=== PATIENT | female | born 1950 | race Caucasian/White ===

== ENCOUNTER 2018-07-12 11:02 | Inpatient (IN) | payer BC, MEDICARE ==
[2018-07-12 11:10] VITALS: BMI 24.6
--- NOTE | 2018-07-12 11:57 | C.PDOC ---
History Of Present Illness 67 year old female with a history of breast cancer (2014) presents to the emergency department with complaints of midsternal chest pain on and off for the last week. Patient states that the pain is radiating to her left chest. She de scribes the pain as intermediate and dull quality. Patient also reports shortness of breath. Time Seen by Provider: 07/12/18 11:36 Chief Complaint (Nursing): Chest Pain History Per: Patient History/Exam Limitations: no limitations Onset/Duration Of Symptoms: Intermittent Episodes, Other (one week) Current Symptoms Are (Timing): Still Present Quality: Dull Past Medical History Reviewed: Historical Data, Nursing Documentation, Vital Signs Vital Signs: Last Vital Signs Temp 99.7 F H 07/12/18 11:10 Pulse 58 L 07/12/18 11:44 Resp 20 07/12/18 11:10 BP 135/75 07/12/18 11:10 Pulse Ox 99 07/12/18 11:10 - Medical History PMH: Hypercholesterolemia (Not on any meds), Kidney Stones (ASYMPTOMATIC), Chronic Kidney Disease Surgical History: No Surg Hx - [facility] Procedures 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 Cardiovascular: Positive for: Chest Pain Respiratory: Positive for: Shortness of Breath Physical Exam - Physical Exam Appears: Non-toxic, No Acute Distress Skin: Normal Color, Warm, Dry Head: Atraumatic, Normacephalic Eye(s): bilateral: Normal Inspection Oral Mucosa: Moist Neck: Normal, Supple Chest: Symmetrical, No Tenderness Cardiovascular: Rhythm Regular, No Murmur Respiratory: Normal Breath Sounds, No Rales, No Rhonchi, No Wheezing Gastrointestinal/Abdominal: Soft, No Tenderness Extremity: Normal ROM Neurological/Psych: Oriented x3, Normal Speech, Normal Cognition ED Course And Treatment - Laboratory Results Result Diagrams: 07/12/18 12:17 07/12/18 12:17 Interpretation Of ECG: Sinus bradycardia at 51bpm. ST inversion AVL in V2. No ST elevation. O2 Sat by Pulse Oximetry: 99 (RA) Pulse Ox Interpretation: Normal - Radiology CXR: Interpreted by Me, Viewed By Me CXR Interpretation: Yes: No Acute Disease Medical Decision Making Medical Decision Making: Plan: EKG Chemistry Bloodwork Ecotrin 162mg PO O2 via Nasal Cannula CXR Spoke to Dr. Kwaku Brown at 13:43, agreed upon admission to telemetry. Disposition Discussed With : Pee Brown Doctor Will See Patient In The: Hospital Counseled Patient/Family Regarding: Studies Performed, Diagnosis - Disposition Disposition: HOSPITALIZED Disposition Time: 13:45 Condition: STABLE Forms: [facility] ([employer]) - POA Present On Arrival: None - Clinical Impression Clinical Impression: Chest pain, Congestive heart failure - Scribe Statement The provider has reviewed the documentation as recorded by the Scribe (Harvinder Carpenter) Provider Attestation: All medical record entries made by the Scribe were at my direction and personally dictated by me. I have reviewed the chart and agree that the record accurately reflects my personal performance of the history, physical exam, m edical decision making, and the department course for this patient. I have also personally directed, reviewed, and agree with the discharge instructions and disposition.
[2018-07-12 12:22] LABS: BASO % 0.4 % (0.0-2.0); EOS % 0.1 % (0.0-4.0); HEMOGLOBIN 13.9 g/dL (11.0-16.0); LYMPH # 1.1 K/uL (1.0-4.3); MEAN CELL VOLUME 95.8 fL (81.0-99.0); MEAN CORPUSCULAR HEMOGLOBIN 32.8 pg (27.0-31.0); MEAN CORPUSCULAR HGB CONC 34.3 g/dL (33.0-37.0); MEAN PLATELET VOLUME 9.6 fL (7.2-11.7); MONO # 0.4 K/uL (0.0-0.8); MONO % 2.9 % (0.0-10.0); NEUT # 11.8 K/uL (1.8-7.0); NEUT % 88.6 % (50.0-75.0); PLATELET COUNT 238 K/uL (130-400); RBC 4.22 Mil/uL (3.80-5.20); RED CELL DISTRIBUTION WIDTH 12.2 % (11.5-14.5)
[2018-07-12 12:25] LABS: WHITE BLOOD COUNT 13.3 K/uL (4.8-10.8)
[2018-07-12 12:30] LABS: PARTIAL THROMBOPLASTIN TIME 29 SECONDS (21-34); PROTHROMBIN TIME 11.3 SECONDS (9.7-12.2)
[2018-07-12 12:41] LABS: BANDS 1 % (0-2); LYMPHOCYTE 10 % (20-40); MONOCYTE 5 % (0-10); NEUTROPHIL 84 % (50-75); TOTAL CELLS COUNTED 100
[2018-07-12 12:42] LABS: ANISOCYTOSIS SLIGHT; PLATELET ESTIMATE NORMAL (NORMAL)
[2018-07-12 12:43] LABS: ALB/GLOB RATIO 1.6 (1.0-2.1); ALBUMIN 4.4 g/dL (3.5-5.0); ALT/SGPT 55 U/L (9-52); AST/SGOT 41 U/L (14-36); BLOOD UREA NITROGEN 16 mg/dL (7-17); CALCIUM 9.6 mg/dl (8.6-10.4); GFR NON-AFRICAN AMERICAN > 60
[2018-07-12 12:46] LABS: D DIMER < 200 ng/mlDDU (0-243)
[2018-07-12 12:54] LABS: B-TYPE NATRIURETIC PEPTIDE 1920 pg/mL (0-900)
[2018-07-12] MEDS ORDERED: Pneumococcal 23-Valent Vaccine IM ONE (16:16)
--- NOTE | 2018-07-12 17:27 | CP.PCM.HP ---
History of Present Illness - History of Present Illness History of Present Illness: 67 year old female patient with past medical history of CKD, kidney stones, breast cancer presents to the ER with intermittent midsternal chest pain since last one week, which radiates to her left chest. pain is intermediate and dull quality a/w SOB Present on Admission - Present on Admission Any Indicators Present on Admission: No Past Patient History - Past Medical History & Family History Past Medical History?: Yes - Past Social History Smoking Status: Never Smoked - CARDIAC Hx Hypercholesterolemia: Yes (Not on any meds) - PULMONARY Hx Respiratory Disorders: No - NEUROLOGICAL Hx Neurological Disorder: No - HEENT Hx HEENT Problems: No - RENAL Hx Chronic Kidney Disease: Yes Hx Kidney Stones: Yes (ASYMPTOMATIC) - ENDOCRINE/METABOLIC Hx Endocrine Disorders: No - HEMATOLOGICAL/ONCOLOGICAL Hx Blood Disorders: Yes Hx Cancer: Yes (RIGHT BREAST) Hx Chemotherapy: Yes - INTEGUMENTARY Hx Dermatological Problems: Yes (HX. FINGER NAIL FUNGUS) - GASTROINTESTINAL Hx Gastrointestinal Disorders: No - GENITOURINARY/GYNECOLOGICAL Hx Genitourinary Disorders: No - PSYCHIATRIC Hx Substance Use: No - SURGICAL HISTORY Hx Surgeries: Yes Hx Breast Biopsy: Yes (RIGHT BREAST) Hx Mastectomy: Yes (MODIFIED-(SEE TEXT)) Hx Vascular Surgery: Yes (life port left chest) Other/Comment: 11/12/14; MODIFIED MASECTOMY WITH AXILLARY NODE DISSECTION AND FROZEN SECTION RANDEE RECONSTRUCTION.(RIGHT BREAST). - ANESTHESIA Hx Anesthesia: Yes Hx Anesthesia Reactions: No Hx Malignant Hyperthermia: No Meds Allergies/Adverse Reactions: Allergies Allergy/AdvReac Type Severity Reaction Status Date / Time No Known Allergies Allergy Verified 07/12/18 11:09 Physical Exam - Constitutional Appears: Well - Head Exam Head Exam: ATRAUMATIC, NORMAL INSPECTION, NORMOCEPHALIC - Eye Exam Eye Exam: EOMI, Normal appearance, PERRL Pupil Exam: NORMAL ACCOMODATION, PERRL - ENT Exam ENT Exam: Mucous Membranes Moist, Normal Exam - Neck Exam Neck exam: Positive for: Normal Inspection - Respiratory Exam Respiratory Exam: Decreased Breath Sounds - Cardiovascular Exam Cardiovascular Exam: REGULAR RHYTHM, +S1, +S2 - GI/Abdominal Exam GI & Abdominal Exam: Diminished Bowel Sounds, Soft - Rectal Exam Rectal Exam: Deferred Results - Vital Signs Recent Vital Signs: Last Vital Signs Temp 97.6 F 07/12/18 15:15 Pulse 59 L 07/12/18 15:15 Resp 18 07/12/18 15:15 BP 115/73 07/12/18 15:15 Pulse Ox 98 07/12/18 15:15 - Labs Result Diagrams: 07/15/18 06:24 07/12/18 12:17 Labs: Laboratory Results - last 24 hr 07/12/18 07/12/18 07/12/18 12:17 12:17 12:17 WBC 13.3 H D RBC 4.22 Hgb 13.9 Hct 40.4 MCV 95.8 MCH 32.8 H MCHC 34.3 RDW 12.2 Plt Count 238 MPV 9.6 Neut % (Auto) 88.6 H Lymph % (Auto) 8.0 L [place] % (Auto) 2.9 Eos % (Auto) 0.1 Baso % (Auto) 0.4 Neut # (Auto) 11.8 H Lymph # (Auto) 1.1 [place] # (Auto) 0.4 Eos # (Auto) 0.0 Baso # (Auto) 0.0 Neutrophils % (Manual) 84 H Band Neutrophils % 1 Lymphocytes % (Manual) 10 L Monocytes % (Manual) 5 Platelet Estimate Normal Anisocytosis (manual) Slight PT 11.3 INR 1.0 APTT 29 D-Dimer, Quantitative < 200 Sodium 138 Potassium 3.9 Chloride 105 Carbon Dioxide 23 Anion Gap 13 BUN 16 Creatinine 0.5 L Est GFR ( Amer) > 60 Est GFR (Non-Af Amer) > 60 Random Glucose 126 H D Calcium 9.6 Total Bilirubin 0.6 AST 41 H ALT 55 H D Alkaline Phosphatase 95 Troponin I 0.0470 NT-Pro-B Natriuret Pep 1920 H Total Protein 7.2 Albumin 4.4 Globulin 2.7 Albumin/Globulin Ratio 1.6
[2018-07-12 17:45] LABS: CK-MB 5.31 ng/mL (0.0-3.38); TROPONIN I 0.254 ng/mL (0.00-0.120)
--- NOTE | 2018-07-12 18:14 | CP.PCM.CON ---
History of Present Illness - History of Present Illness History of Present Illness: CC: Chest pain HPI: 67 year old female with chest pain. Pain started in June was found to have an abnormal EKG with LAD territory stenosis she was refereed to cardiology this appointment is for next week. She is reporting one day onset of chest pain. Located in the retrosternum. Pain occured at rest. Pain is burning and pressure like in character. pain radiates to jaw. She is reporting it improved with aspirin in ED. Review of Systems - Review of Systems All systems: reviewed and no additional remarkable complaints except Past Patient History - Past Medical History & Family History Past Medical History?: Yes - Past Social History Smoking Status: Never Smoked - CARDIAC Hx Hypercholesterolemia: Yes (Not on any meds) - PULMONARY Hx Respiratory Disorders: No - NEUROLOGICAL Hx Neurological Disorder: No - HEENT Hx HEENT Problems: No - RENAL Hx Chronic Kidney Disease: Yes Hx Kidney Stones: Yes (ASYMPTOMATIC) - ENDOCRINE/METABOLIC Hx Endocrine Disorders: No - HEMATOLOGICAL/ONCOLOGICAL Hx Blood Disorders: Yes Hx Cancer: Yes (RIGHT BREAST) Hx Chemotherapy: Yes - INTEGUMENTARY Hx Dermatological Problems: Yes (HX. FINGER NAIL FUNGUS) - GASTROINTESTINAL Hx Gastrointestinal Disorders: No - GENITOURINARY/GYNECOLOGICAL Hx Genitourinary Disorders: No - PSYCHIATRIC Hx Substance Use: No - SURGICAL HISTORY Hx Surgeries: Yes Hx Breast Biopsy: Yes (RIGHT BREAST) Hx Mastectomy: Yes (MODIFIED-(SEE TEXT)) Hx Vascular Surgery: Yes (life port left chest) Other/Comment: 11/12/14; MODIFIED MASECTOMY WITH AXILLARY NODE DISSECTION AND FROZEN SECTION RANDEE RECONSTRUCTION.(RIGHT BREAST). - ANESTHESIA Hx Anesthesia: Yes Hx Anesthesia Reactions: No Hx Malignant Hyperthermia: No Meds Allergies/Adverse Reactions: Allergies Allergy/AdvReac Type Severity Reaction Status Date / Time No Known Allergies Allergy Verified 07/12/18 11:09 - Medications Medications: Current Medications Aspirin (Aspirin) 325 mg PO DAILY [facility] Clopidogrel Bisulfate (Plavix) 75 mg PO DAILY [facility] Ergocalciferol (Drisdol 50,000 Intl Units Cap) 1 cap PO DAILY [facility] Furosemide (Lasix) 20 mg IVP DAILY [facility] Influenza Virus Vaccine (Flucelvax Quad [id number] Syr) 60 mcg IM .ONCE ONE Stop: 07/13/18 10:01 [id number] Ethyl Esters (Lovaza) 1 gm PO DAILY [facility] Physical Exam - Constitutional Appears: Well, Non-toxic - Head Exam Head Exam: ATRAUMATIC, NORMAL INSPECTION - Eye Exam Eye Exam: PERRL. absent: Scleral icterus - ENT Exam ENT Exam: Mucous Membranes Moist, Normal External Ear Exam - Neck Exam Neck exam: Positive for: Full Rom. Negative for: Thyromegaly - Respiratory Exam Respiratory Exam: Clear to Auscultation Bilateral, NORMAL BREATHING PATTERN - Cardiovascular Exam Cardiovascular Exam: REGULAR RHYTHM, RRR, +S1, +S2. absent: JVD - GI/Abdominal Exam GI & Abdominal Exam: Normal Bowel Sounds. absent: Organomegaly - Extremities Exam Extremities exam: Positive for: normal inspection. Negative for: calf tenderness, pedal edema - Neurological Exam Neurological exam: CN II-XII Intact, Oriented x3 - Psychiatric Exam Psychiatric exam: Normal Affect, Normal Mood Results - Vital Signs Recent Vital Signs: Last Vital Signs Temp 97.6 F 07/12/18 15:15 Pulse 59 L 07/12/18 15:15 Resp 18 07/12/18 15:15 BP 115/73 07/12/18 15:15 Pulse Ox 98 07/12/18 15:15 - Labs Result Diagrams: 07/13/18 07:18 07/12/18 12:17 Labs: Laboratory Results - last 24 hr 07/12/18 07/12/18 07/12/18 12:17 12:17 12:17 WBC 13.3 H D RBC 4.22 Hgb 13.9 Hct 40.4 MCV 95.8 MCH 32.8 H MCHC 34.3 RDW 12.2 Plt Count 238 MPV 9.6 Neut % (Auto) 88.6 H Lymph % (Auto) 8.0 L [place] % (Auto) 2.9 Eos % (Auto) 0.1 Baso % (Auto) 0.4 Neut # (Auto) 11.8 H Lymph # (Auto) 1.1 [place] # (Auto) 0.4 Eos # (Auto) 0.0 Baso # (Auto) 0.0 Neutrophils % (Manual) 84 H Band Neutrophils % 1 Lymphocytes % (Manual) 10 L Monocytes % (Manual) 5 Platelet Estimate Normal Anisocytosis (manual) Slight PT 11.3 INR 1.0 APTT 29 D-Dimer, Quantitative < 200 Sodium 138 Potassium 3.9 Chloride 105 Carbon Dioxide 23 Anion Gap 13 BUN 16 Creatinine 0.5 L Est GFR ( Amer) > 60 Est GFR (Non-Af Amer) > 60 Random Glucose 126 H D Calcium 9.6 Total Bilirubin 0.6 AST 41 H ALT 55 H D Alkaline Phosphatase 95 Total Creatine Kinase CK-MB (Mass) Troponin I 0.0470 NT-Pro-B Natriuret Pep 1920 H Total Protein 7.2 Albumin 4.4 Globulin 2.7 Albumin/Globulin Ratio 1.6 07/12/18 17:11 WBC RBC Hgb Hct MCV MCH MCHC RDW Plt Count MPV Neut % (Auto) Lymph % (Auto) [place] % (Auto) Eos % (Auto) Baso % (Auto) Neut # (Auto) Lymph # (Auto) [place] # (Auto) Eos # (Auto) Baso # (Auto) Neutrophils % (Manual) Band Neutrophils % Lymphocytes % (Manual) Monocytes % (Manual) Platelet Estimate Anisocytosis (manual) PT INR APTT D-Dimer, Quantitative Sodium Potassium Chloride Carbon Dioxide Anion Gap BUN Creatinine Est GFR ( Amer) Est GFR (Non-Af Amer) Random Glucose Calcium Total Bilirubin AST ALT Alkaline Phosphatase Total Creatine Kinase 89 CK-MB (Mass) 5.31 H Troponin I 0.2540 H* NT-Pro-B Natriuret Pep Total Protein Albumin Globulin Albumin/Globulin Ratio - EKG Data EKG Interpreted by: Myself EKG shows normal: Sinus rhythm, ST-T waves (T wave symetrical diffuse inversions) Rate: Normal - Imaging and Cardiology Chest x-ray Status: Image reviewed by me Additional comment: No infiltrates or effusions Assessment & Plan - Assessment and Plan (Free Text) Assessment: 67 year old female with NSTEMI Trop > 1.0 IV heparin. Nitrates as needed for chest pain. ASA, Plavix, obtain 2D echo to rule out cardiomyopathy given her h istory of cardiotoxic chemo for breast cancer. If she has regional wall motion abnormalities then will scheduled cardiac catheterizing for coronary angiogram. Breast cancer s/p full course of chemo and 6 months post treatment of tomoxafin, obtain those records if there is low EF. - Date & Time Date: 07/13/18 Time: 14:01
--- NOTE | 2018-07-12 18:34 | RAD ---
Date of service: 07/12/2018 HISTORY: chest pain COMPARISON: Portable chest 11/12/2014. FINDINGS: LUNGS: Endotracheal tube and left MediPort have been removed. Cardiomegaly is stable. No pulmonary congestion infiltrate or pleural effusion appreciated at this time. No pneumothorax bilaterally. PLEURA: As above. CARDIOVASCULAR: No aortic atherosclerotic calcification present. Normal cardiac size. No pulmonary vascular congestion. OSSEOUS STRUCTURES: No significant abnormalities. VISUALIZED UPPER ABDOMEN: Normal. OTHER FINDINGS: None. IMPRESSION: Stable cardiomegaly. No acute cardiopulmonary disease appreciated at this time. MediPort and endotracheal tube removed.
[2018-07-12] MEDS: Heparin25000 units/250ml 1/2NS 25,000 UNITS/250 ML BAG IV PRN (19:38)
[2018-07-13 00:19] LABS: CK-MB 20.6 ng/mL (0.0-3.38); TROPONIN I 1.67 ng/mL (0.00-0.120)
[2018-07-13 00:35] VITALS: RESP 20
[2018-07-13 07:26] LABS: BASO % 0.2 % (0.0-2.0); EOS % 0.1 % (0.0-4.0); HEMOGLOBIN 14.4 g/dL (11.0-16.0); LYMPH # 1.7 K/uL (1.0-4.3); LYMPH % 16.5 % (20.0-40.0); MEAN CELL VOLUME 94.2 fL (81.0-99.0); MEAN CORPUSCULAR HEMOGLOBIN 32.6 pg (27.0-31.0); MEAN CORPUSCULAR HGB CONC 34.6 g/dL (33.0-37.0); MEAN PLATELET VOLUME 9.6 fL (7.2-11.7); MONO # 0.4 K/uL (0.0-0.8); MONO % 4.2 % (0.0-10.0); NEUT # 8.3 K/uL (1.8-7.0); RBC 4.42 Mil/uL (3.80-5.20); RED CELL DISTRIBUTION WIDTH 12.1 % (11.5-14.5); WHITE BLOOD COUNT 10.5 K/uL (4.8-10.8)
[2018-07-13] MEDS: Omega-3-Acid Ethyl Esters 1 GM Cap PO SCH (09:22)
[2018-07-13] MEDS: Ergocalciferol 50,000 Intl Units Cap PO SCH (09:22)
[2018-07-13] MEDS ORDERED: Influenza Vaccine 60 mcg/0.5 mL SYR (4YR UP) IM ONE (10:00)
--- NOTE | 2018-07-13 16:30 | CP.PCM.PN ---
Subjective - Date & Time of Evaluation Date of Evaluation: 07/13/18 Time of Evaluation: 10:30 - Subjective Subjective: clinically same Objective - Vital Signs/Intake and Output Vital Signs (last 24 hours): Temp Pulse Resp BP Pulse Ox 98.1 F 93 H 20 97/61 L 96 07/13/18 08:00 07/13/18 12:04 07/13/18 08:00 07/13/18 09:23 07/13/18 08:00 - Medications Medications: Current Medications Aspirin (Aspirin) 325 mg PO DAILY [facility] Last Admin: 07/13/18 09:22 Dose: 325 mg Clopidogrel Bisulfate (Plavix) 75 mg PO DAILY [facility] Last Admin: 07/13/18 09:22 Dose: 75 mg Ergocalciferol (Drisdol 50,000 Intl Units Cap) 1 cap PO DAILY [facility] Last Admin: 07/13/18 09:22 Dose: 1 cap Furosemide (Lasix) 20 mg IVP DAILY [facility] Last Admin: 07/13/18 09:23 Dose: Not Given Heparin Sodium/Sodium Chloride (Heparin 30887 Units/250ml 1/2 Normal Saline) 25,000 units in 250 mls @ 6.641 mls/hr IV .Q24H PRN; Protocol PRN Reason: PROTOCOL Last Admin: 07/12/18 19:38 Dose: 12 units/kg/hr, 6.641 mls/hr [id number]-8-[id number] Ethyl Esters (Lovaza) 1 gm PO DAILY [facility] Last Admin: 07/13/18 09:22 Dose: 1 gm - Labs Labs: 07/13/18 07:18 07/12/18 12:17 PT 11.3 SECONDS (9.7-12.2) 07/12/18 12:17 INR 1.0 07/12/18 12:17 APTT 50 SECONDS (21-34) H 07/13/18 07:18
[2018-07-14 07:40] LABS: BASO % 0.4 % (0.0-2.0); EOS % 0.4 % (0.0-4.0); HEMOGLOBIN 14.6 g/dL (11.0-16.0); LYMPH % 27.8 % (20.0-40.0); MEAN CELL VOLUME 94.2 fL (81.0-99.0); MEAN CORPUSCULAR HEMOGLOBIN 33.3 pg (27.0-31.0); MEAN CORPUSCULAR HGB CONC 35.4 g/dL (33.0-37.0); MONO # 0.5 K/uL (0.0-0.8); MONO % 7.1 % (0.0-10.0); NEUT # 4.7 K/uL (1.8-7.0); NEUT % 64.3 % (50.0-75.0); RBC 4.38 Mil/uL (3.80-5.20); RED CELL DISTRIBUTION WIDTH 12.2 % (11.5-14.5); WHITE BLOOD COUNT 7.4 K/uL (4.8-10.8)
[2018-07-14] MEDS: Omega-3-Acid Ethyl Esters 1 GM Cap PO SCH (09:40)
[2018-07-14] MEDS: Ergocalciferol 50,000 Intl Units Cap PO SCH (09:40)
[2018-07-14] MEDS: Heparin25000 units/250ml 1/2NS 25,000 UNITS/250 ML BAG IV PRN (12:08)
--- NOTE | 2018-07-14 12:09 | CP.PCM.PN ---
Subjective - Date & Time of Evaluation Date of Evaluation: 07/14/18 Time of Evaluation: 12:45 - Subjective Subjective: CP is minimal No acute distress No ADHF No fevers or chills Objective - Vital Signs/Intake and Output Vital Signs (last 24 hours): Temp Pulse Resp BP Pulse Ox 98.3 F 88 20 120/77 100 07/14/18 07:05 07/14/18 11:54 07/14/18 11:10 07/14/18 09:40 07/14/18 11:10 - Medications Medications: Current Medications Aspirin (Aspirin) 325 mg PO DAILY [facility] Last Admin: 07/14/18 09:40 Dose: 325 mg Clopidogrel Bisulfate (Plavix) 75 mg PO DAILY [facility] Last Admin: 07/14/18 09:40 Dose: 75 mg Ergocalciferol (Drisdol 50,000 Intl Units Cap) 1 cap PO DAILY [facility] Last Admin: 07/14/18 09:40 Dose: 1 cap Furosemide (Lasix) 20 mg IVP DAILY [facility] Last Admin: 07/14/18 09:40 Dose: 20 mg Heparin Sodium/Sodium Chloride (Heparin 44301 Units/250ml 1/2 Normal Saline) 25,000 units in 250 mls @ 6.641 mls/hr IV .Q24H PRN; Protocol PRN Reason: PROTOCOL Last Admin: 07/12/18 19:38 Dose: 12 units/kg/hr, 6.641 mls/hr [id number] Ethyl Esters (Lovaza) 1 gm PO DAILY [facility] Last Admin: 07/14/18 09:40 Dose: 1 gm - Labs Labs: 07/14/18 07:24 07/12/18 12:17 PT 11.3 SECONDS (9.7-12.2) 07/12/18 12:17 INR 1.0 07/12/18 12:17 APTT 61 SECONDS (21-34) H D 07/14/18 07:24 - Constitutional Appears: No Acute Distress - Head Exam Head Exam: ATRAUMATIC, NORMAL INSPECTION, NORMOCEPHALIC - Eye Exam Eye Exam: EOMI, Normal appearance. absent: Scleral icterus - ENT Exam ENT Exam: Mucous Membranes Moist, Normal Oropharynx - Neck Exam Neck Exam: Full ROM, Normal Inspection. absent: Tenderness - Respiratory Exam Respiratory Exam: Clear to Ausculation Bilateral, NORMAL BREATHING PATTERN. absent: Rhonchi, Wheezes - Cardiovascular Exam Cardiovascular Exam: REGULAR RHYTHM, +S1, +S2. absent: +S4, Murmur - GI/Abdominal Exam GI & Abdominal Exam: Soft, Normal Bowel Sounds. absent: Tenderness, Organomegaly - Extremities Exam Extremities Exam: Full ROM, Normal Inspection. absent: Calf Tenderness, Pedal Edema - Neurological Exam Neurological Exam: Alert, Awake, Oriented x3 - Psychiatric Exam Psychiatric exam: Normal Affect, Normal Mood - Skin Skin Exam: Normal Color, Warm Assessment and Plan - Assessment and Plan (Free Text) Assessment: Patient with NSTEMI > Serial EKG's reviewed by me suggest recent anterior infarct and now q-waves in the anteroseptal leads > ECHO done: 07/13/18: images directly viewed by me: Moderate LV function ~ 40- 45% with distal septum and diana-apical akinesia c/w ischemic cardiomyopathy. > CXR: no infiltrate or effusion, stable mild cardiomegaly Labs: Normal creat, trop .04 > 0.2 > 1.67; H/H normal, mild inc in AST/ALT DX: Ischemic cardiomyopathy, recent anterior infarct add Coreg 3.125 BID cont DAPT and Heparin Add crestor 20 cont lasix consider IMDUR or ranexa if chest pains PLAN: I discussed R&B of cardiac cath diagnostic versus transfer to [facility] for cath with PCI as high probability for intervention. I offered diagnostic cath here at [facility]: but given need for possible intervention they prefer transfer to [facility] as can be done simultaneously if needed. NPO after midnight: case scheduled for ~10:30am 07/15/18 at [facility] [employer] [phone]
--- NOTE | 2018-07-14 14:42 | CARD ---
APPROVED REPORT Date of service: 07/12/2018 EKG Measurement Heart [id number] 142P5 [id number] <Conclusion> Sinus bradycardia Minimal voltage criteria for LVH, may be normal variant Cannot rule out Anteroseptal infarct, age undetermined T wave abnormality, consider lateral ischemia Abnormal ECG
--- NOTE | 2018-07-14 14:59 | CP.PCM.PN ---
Subjective - Date & Time of Evaluation Date of Evaluation: 07/14/18 Time of Evaluation: 11:30 - Subjective Subjective: clinically same Objective - Vital Signs/Intake and Output Vital Signs (last 24 hours): Temp Pulse Resp BP Pulse Ox 98.3 F 88 20 120/77 100 07/14/18 07:05 07/14/18 11:54 07/14/18 11:10 07/14/18 09:40 07/14/18 11:10 Intake and Output: 07/14/18 07/14/18 06:59 18:59 Intake Total 240 Balance 240 - Medications Medications: Current Medications Aspirin (Aspirin) 325 mg PO DAILY [facility] Last Admin: 07/14/18 09:40 Dose: 325 mg Carvedilol (Coreg) 3.125 mg PO BID [facility] Clopidogrel Bisulfate (Plavix) 75 mg PO DAILY [facility] Last Admin: 07/14/18 09:40 Dose: 75 mg Ergocalciferol (Drisdol 50,000 Intl Units Cap) 1 cap PO DAILY [facility] Last Admin: 07/14/18 09:40 Dose: 1 cap Furosemide (Lasix) 20 mg IVP DAILY [facility] Last Admin: 07/14/18 09:40 Dose: 20 mg Heparin Sodium/Sodium Chloride (Heparin 17120 Units/250ml 1/2 Normal Saline) 25,000 units in 250 mls @ 6.641 mls/hr IV .Q24H PRN; Protocol PRN Reason: PROTOCOL Last Admin: 07/14/18 12:08 Dose: 12 units/kg/hr, 6.641 mls/hr [id number]-[id number] Ethyl Esters (Lovaza) 1 gm PO DAILY [facility] Last Admin: 07/14/18 09:40 Dose: 1 gm - Labs Labs: 07/14/18 07:24 07/12/18 12:17 PT 11.3 SECONDS (9.7-12.2) 07/12/18 12:17 INR 1.0 07/12/18 12:17 APTT 61 SECONDS (21-34) H D 07/14/18 07:24 - Constitutional Appears: Well - Head Exam Head Exam: ATRAUMATIC, NORMAL INSPECTION, NORMOCEPHALIC - Eye Exam Eye Exam: EOMI, Normal appearance, PERRL Pupil Exam: NORMAL ACCOMODATION, PERRL - ENT Exam ENT Exam: Mucous Membranes Moist, Normal Exam - Neck Exam Neck Exam: Full ROM, Normal Inspection. absent: Lymphadenopathy - Respiratory Exam Respiratory Exam: Decreased Breath Sounds - Cardiovascular Exam Cardiovascular Exam: REGULAR RHYTHM, +S1, +S2 - GI/Abdominal Exam GI & Abdominal Exam: Soft, Diminished Bowel Sounds - Rectal Exam Rectal Exam: Deferred
--- NOTE | 2018-07-14 15:05 | CARD ---
APPROVED REPORT Date of service: 07/14/2018 EXAM: Two-dimensional and M-mode echocardiogram with Doppler and color Doppler. Other Information Quality : GoodRhythm : INDICATION Chest Pain Congestive Heart Failure POSITIVE TROPONIN, CA OF BREAST RISK FACTORS Hyperlipidemia 2D DIMENSIONS IVSd0.9 (0.7-1.1cm)LVDd4.6 (3.9-5.9cm) PWd0.9 (0.7-1.1cm)LA Ujeurr57 (18-58mL) LVDs2.9 (2.5-4.0cm)FS (%) 36.7 % LVEF (%)49.0 (>50%)LVEF (Bolton's)48 % IVC0.00 cm M-Mode DIMENSIONS RVDd1.49 (2.1-3.2cm)Left Atrium (MM)3.28 (2.5-4.0cm) IVSd1.28 (0.7-1.1cm)Aortic Root2.51 (2.2-3.7cm) LVDd4.89 (4.0-5.6cm)Aortic Cusp Exc.1.72 (1.5-2.0cm) PWd0.88 (0.7-1.1cm)FS (%) 24 % LVDs3.71 (2.0-3.8cm)LVEF (%)48 (>50%) Mitral Valve MV E Efaiwzei12.4cm/sMV A Hgeslile013.3cm/sE/A ratio0.7 WSHM667.04 cm/s TDI Lateral E' Peak V3.32cm/sMedial E' Peak V4.67cm/sE/Lateral E'23.3 E/Medial E'16.6 Tricuspid Valve TR Peak Sejmlsml726je/sTR Peak Gr.[id number] LEFT VENTRICLE The left ventricle is normal size. There is mild concentric left ventricular hypertrophy. The Ejection Fraction is 55-60%. inferoapical akinesia,poss cad. Transmitral Doppler flow pattern is Grade I-abnormal relaxation pattern. The left atrial pressure is moderately elevated. RIGHT VENTRICLE The right ventricle is normal size. The right ventricular systolic function is normal. ATRIA The left atrium size is normal. The right atrium size is normal. The interatrial septum is intact with no evidence for an atrial septal defect. AORTIC VALVE The aortic valve is trileaflet. No aortic regurgitation is present. MITRAL VALVE The mitral valve is normal in structure. Mitral regurgitation is mild. TRICUSPID VALVE The tricuspid valve is normal in structure. There is mild tricuspid regurgitation. Right ventricular systolic pressure is estimated at 48 mmHg. There is moderate pulmonary hypertension. PULMONIC VALVE The pulmonary valve is normal in structure. There is mild pulmonic valvular regurgitation. GREAT VESSELS The aortic root is normal size. The aortic root displays mild to moderate sclerocalcific changes of the aortic root. The IVC is normal in size and collapses >50% with inspiration. PERICARDIAL EFFUSION There is no pericardial effusion. <Conclusion> The left ventricle is normal size. There is mild concentric left ventricular hypertrophy. The Ejection Fraction is 55-60%. inferoapical akinesia,poss cad. Transmitral Doppler flow pattern is Grade I-abnormal relaxation pattern. The left atrial pressure is moderately elevated. Mitral regurgitation is mild. There is mild tricuspid regurgitation. Right ventricular systolic pressure is estimated at 48 mmHg. There is moderate pulmonary hypertension. The aortic root is normal size. The aortic root displays mild to moderate sclerocalcific changes of the aortic root. The IVC is normal in size and collapses >50% with inspiration. There is no pericardial effusion.
[2018-07-15 06:38] LABS: BASO % 0.5 % (0.0-2.0); EOS % 0.6 % (0.0-4.0); HEMOGLOBIN 14.8 g/dL (11.0-16.0); LYMPH # 2.1 K/uL (1.0-4.3); LYMPH % 27.8 % (20.0-40.0); MEAN CELL VOLUME 95.4 fL (81.0-99.0); MEAN CORPUSCULAR HGB CONC 34.6 g/dL (33.0-37.0); MEAN PLATELET VOLUME 9.7 fL (7.2-11.7); MONO # 0.5 K/uL (0.0-0.8); MONO % 6.8 % (0.0-10.0); NEUT # 4.9 K/uL (1.8-7.0); NEUT % 64.3 % (50.0-75.0); RBC 4.47 Mil/uL (3.80-5.20); RED CELL DISTRIBUTION WIDTH 12.1 % (11.5-14.5); WHITE BLOOD COUNT 7.6 K/uL (4.8-10.8)
[2018-07-15 08:43] VITALS: BP 93/61; PULSE 68; TEMP 98.2; O2SAT 98
[2018-07-15] MEDS: Ergocalciferol 50,000 Intl Units Cap PO SCH (11:21)
[2018-07-15] MEDS: Omega-3-Acid Ethyl Esters 1 GM Cap PO SCH (11:22)
--- NOTE | 2018-07-15 12:30 | CP.PCM.PN ---
Subjective - Date & Time of Evaluation Date of Evaluation: 07/15/18 Time of Evaluation: 11:30 - Subjective Subjective: clinicallys cesilia Objective - Vital Signs/Intake and Output Vital Signs (last 24 hours): Temp Pulse Resp BP Pulse Ox 98.2 F 68 20 93/61 L 98 07/15/18 07:45 07/15/18 07:45 07/15/18 07:45 07/15/18 07:45 07/15/18 07:45 - Medications Medications: Current Medications Aspirin (Aspirin) 325 mg PO DAILY [facility] Last Admin: 07/15/18 06:34 Dose: 325 mg Carvedilol (Coreg) 3.125 mg PO BID [facility] Last Admin: 07/15/18 06:34 Dose: 3.125 mg Clopidogrel Bisulfate (Plavix) 75 mg PO DAILY [facility] Last Admin: 07/15/18 06:34 Dose: 75 mg Ergocalciferol (Drisdol 50,000 Intl Units Cap) 1 cap PO DAILY [facility] Last Admin: 07/15/18 11:21 Dose: Not Given Furosemide (Lasix) 20 mg IVP DAILY [facility] Last Admin: 07/15/18 11:21 Dose: Not Given Heparin Sodium/Sodium Chloride (Heparin 42594 Units/250ml 1/2 Normal Saline) 25,000 units in 250 mls @ 6.641 mls/hr IV .Q24H PRN; Protocol PRN Reason: PROTOCOL Last Admin: 07/14/18 12:08 Dose: 12 units/kg/hr, 6.641 mls/hr Vuzmx-3-Hjon Ethyl Esters (Lovaza) 1 gm PO DAILY [facility] Last Admin: 07/15/18 11:22 Dose: Not Given - Labs Labs: 07/15/18 06:24 07/12/18 12:17 PT 11.3 SECONDS (9.7-12.2) 07/12/18 12:17 INR 1.0 07/12/18 12:17 APTT 46 SECONDS (21-34) H D 07/15/18 06:24
== END 2018-07-15 14:44 | disposition short-term general hospital (02) | DRG 282 ==
LOC: C.ER 11:02 → C.9E 13:43 → C.6T 14:09 → OBSVTOIN 07-14 11:06 → C.6T 07-15 08:57
PROVIDERS: ADMIT Internal Medicine Nephrology; ATTEND Internal Medicine Nephrology
DX: I21.4 Non-ST elevation (NSTEMI) myocardial infarction (principal); I25.5 Ischemic cardiomyopathy; I50.9 Heart failure, unspecified; N18.9 Chronic kidney disease, unspecified; Z87.442 Personal history of urinary calculi; C50.919 Malignant neoplasm of unspecified site of unspecified female breast; E78.00 Pure hypercholesterolemia, unspecified